=== PATIENT | female | born 1945 | race Caucasian/White ===

== ENCOUNTER 2020-05-11 10:12 | Day surgery (SDC) | payer MEDICARE, OTHER, SELFPAY ==
[2020-05-07 10:04] VITALS: BMI 34.9
--- NOTE | 2020-05-07 14:03 | P.CONAN_ITS ---
Documented by User: Samantha Jacobson 05/07/20 14:04 HPI - Anesthesia Eval Consult details Narrative: 74 yo F for colonoscopy PMFSH Past Medical History Medical History Diabetes Elevated cholesterol HTN (hypertension) Surgical History Surgical History H/O colonoscopy History of Hx of bilateral hip replacements Social History Social History Smoking Status: Former smoker Packs Per Day: 1 Cigarettes Per Day: 20.0 Years Smoked: 5 Smoked in Last 30 Days: No Smoking Quit Date: unknown Patient Interested in Nicotine Replacement: No Patient Given Instructions on How to Stop Smoking: No Second Hand Smoke Exposure: No Use of substances other than those prescribed or required for medical reasons: No Advance Directives Information Provided: No Recently lost weight without trying: No Meds Allergies Allergy/AdvReac Type Severity Reaction Status Date / Time ibuprofen [From Motrin] Allergy Unknown Verified 05/07/20 10:17 Home Medications Medication Instructions Recorded Confirmed Type dulaglutide [Trulicity] mg SUBCUT QWEEK 05/07/20 05/07/20 History hydrochlorothiazide 12.5 mg PO DAILY 05/07/20 05/07/20 History insulin glargine [Lantus Solostar unit SUBCUT QPM 05/07/20 History U-100 Insulin] insulin lispro [Humalog Pen] 6 unit SUBCUT QAM 05/07/20 05/07/20 History insulin lispro [Humalog Pen] 8 unit SUBCUT BID 05/07/20 05/07/20 History rosuvastatin 10 mg PO DAILY 05/07/20 05/07/20 History Exam Exam Date and Time: May 07, 2020 1403 Height,Weight and Vital Signs: Height 5 ft 2 in Weight 86.636 kg Assessment and Plan Assessment Anesthesia Assessment: Chart Reviewed Documented by User: Sara Alfaro 05/11/20 11:33 [facility] Past Medical History Medical History Diabetes Elevated cholesterol HTN (hypertension) Surgical History Surgical History H/O colonoscopy History of Hx of bilateral hip replacements Social History Social History Smoking Status: Former smoker Packs Per Day: 1 Cigarettes Per Day: 20.0 Years Smoked: 5 Smoked in Last 30 Days: No Smoking Quit Date: unknown Patient Interested in Nicotine Replacement: No Patient Given Instructions on How to Stop Smoking: No Second Hand Smoke Exposure: No Use of substances other than those prescribed or required for medical reasons: No Advance Directives Information Provided: No Recently lost weight without trying: No Meds Allergies Allergy/AdvReac Type Severity Reaction Status Date / Time ibuprofen [From Motrin] Allergy Unknown Verified 05/07/20 10:17 Home Medications Medication Instructions Recorded Confirmed Type dulaglutide [Trulicity] mg SUBCUT QWEEK 05/07/20 05/07/20 History hydrochlorothiazide 12.5 mg PO DAILY 05/07/20 05/07/20 History insulin glargine [Lantus Solostar unit SUBCUT QPM 05/07/20 History U-100 Insulin] insulin lispro [Humalog Pen] 6 unit SUBCUT QAM 05/07/20 05/07/20 History insulin lispro [Humalog Pen] 8 unit SUBCUT BID 05/07/20 05/07/20 History rosuvastatin 10 mg PO DAILY 05/07/20 05/07/20 History Exam Airway Mallampati Class: II TM Dist: >3cm Neck ROM: Full Heart: RRR Lungs: CTA Assessment and Plan Assessment Anesthesia Assessment: Anesthesia Plan Discussed, Consent Obtained and Chart Reviewed Final Anesthetic Review NPO: Yes ASA Class: III Final Preanesthetic Review: No Changes in Pt Med Stat, Meds & Allergies Reviewed, Consent Obtained/Reviewed, Med/Surg/Anes Hx Reviewed and Anes Risks/Benef Reviewed Patient Risk: Intermediate Procedure Risk: Low Assessment/Block/Sedation in SS: Assess/Block/Sedation-SS Anesthetic Plan Anesthetic Plan: MAC: Disposition: Standard PACU
[2020-05-11 10:36] VITALS: BMI 32.9
[2020-05-11 10:42] VITALS: BP 139/54; PULSE 89; RESP 16; TEMP 36.1; O2SAT 96
[2020-05-11] MEDS: Lactated Ringers 1,000 ML 100 ML IVCONT (10:49)
[2020-05-11 11:07] LABS: Glucose, Whole Blood 227 mg/dL (60-115)
[2020-05-11 12:59] VITALS: BP 141/66; PULSE 92; RESP 16; TEMP 36.4; O2SAT 94
[2020-05-11 13:06] VITALS: BP 137/64; PULSE 85; RESP 18; O2SAT 97
[2020-05-11 13:19] VITALS: BP 132/65; PULSE 80; RESP 18; TEMP 36.1; O2SAT 96
--- NOTE | 2020-05-11 17:40 | OP_ITS ---
SURGEON: Vidal Brownlee MD INDICATIONS: The patient presents for evaluation of change in bowel habits with associated diarrhea. Full consent has been obtained from her for this, including risks of bleeding and perforation. PREOPERATIVE DIAGNOSIS: POSTOPERATIVE DIAGNOSIS: PROCEDURE PERFORMED: Colonoscopy to cecum and terminal ileum with biopsies. ESTIMATED BLOOD LOSS: COMPLICATIONS: ANESTHESIA: Monitored anesthesia care. ASSISTANTS: SPECIMENS: PREOPERATIVE DIAGNOSES: Diarrhea and change in bowel habits. POSTOPERATIVE DIAGNOSES: Diarrhea and change in bowel habits, diverticulosis, rule out microscopic colitis, probable lipomatous area of ileocecal valve, internal hemorrhoids. DESCRIPTION OF PROCEDURE: The patient was placed in the left lateral decubitus position. The digital rectal exam revealed no abnormalities. The Olympus video pediatric colonoscope was entered into the rectum and advanced to the cecum with the assistance of abdominal wall pressure. Once in the cecum, I did identify cecal pouch with appendiceal orifice. The terminal ileum was cannulated and appeared normal. Scope was withdrawn back in the colon. The entire cecum appeared normal. The ileocecal valve had a somewhat prominent area on one of the portions of it, which appeared to be lipomatous based on its very soft nature when probed with a biopsy forceps. I did obtain biopsies from it. The remainder of the ileocecal valve appeared normal. The scope was then slowly withdrawn assessing all mucosal surfaces carefully. Preparation was excellent. I did not visualize any sign of polyps, colitis, nor angiodysplasia. I did obtain random biopsies in the ascending and descending colon to rule out microscopic colitis. There was a moderate amount of sigmoid diverticulosis. In the rectum, scope was retroflexed visualizing small internal hemorrhoids, but no other pathology. The rectal mucosa appeared normal. The scope was straightened out and withdrawn from the patient. She tolerated the procedure well and was returned to the recovery area in stable condition. IMPRESSION: 1. Diverticulosis. 2. Rule out microscopic colitis. 3. 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 4. Internal hemorrhoids. PLAN: The results of biopsy will be checked. She does report that her bowel movements have been improved since I last saw her in the office. She will be seen in several months for a followup visit. She was advised not to use any aspirin nor NSAIDs for 1 week. MD DUNIA Evans/MEGHNA / [phone] [facility] WESTCHESTERPriscilla
== END 2020-05-11 13:49 | disposition home or self-care (01) ==
PROVIDERS: PCP Internal Medicine Endocrinology, Diabetes & Metabolism; Visit Provider Internal Medicine
PROC: 0DJD8ZZ Inspection of Lower Intestinal Tract, Via Natural or Artificial Opening Endoscopic (ICD-10-PCS; CPT 45378; principal; 2020-05-11 11:30)
DX: R19.4 Change in bowel habit (principal); R19.7 Diarrhea, unspecified; D17.5 Benign lipomatous neoplasm of intra-abdominal organs; K57.30 Diverticulosis of large intestine without perforation or abscess without bleeding; K64.8 Other hemorrhoids; I10 Essential (primary) hypertension; E78.00 Pure hypercholesterolemia, unspecified; E11.9 Type 2 diabetes mellitus without complications; Z79.4 Long term (current) use of insulin; Z79.899 Other long term (current) drug therapy; Z96.643 Presence of artificial hip joint, bilateral; Z87.891 Personal history of nicotine dependence; Z88.8 Allergy status to other drugs, medicaments and biological substances
CPT/HCPCS: 45380; 82947; 88305